=== PATIENT | male | born 1955 | race Caucasian/White ===

== ENCOUNTER 2022-11-23 18:48 | Inpatient (IN) | payer MEDICARE, BC ==
[2022-11-23 19:40] LABS: #Basophils 0.1 10x3/uL (0.0-0.2); #Eosinphils 0.1 10x3/uL (0.0-0.5); #Monocytes 0.5 10x3/uL (0.0-1.1); #Neutrophils 4.7 10x3/uL (1.5-8.4); %Basophils 0.7 % (0.0-2.0); %Eosinophils 1.2 % (0.0-6.0); %Lymphocytes 20.5 % (18.0-47.0); %Monocytes 7.6 % (0.0-10.0); %Neutrophils 69.9 % (40.0-75.0); Hematocrit 43.7 % (38.8-50.0); Hemoglobin 14.5 g/dL (13.5-17.5); Mean Corpuscular HGB CONC 33.2 g/dL (32.0-36.0); Mean Corpuscular Hemoglobin 28.7 pg (27.0-33.0); Mean Corpuscular Volume 86.5 fl (81.2-95.1); Platelet Count 165 10x3/uL (150-450); RBC Distribution Width 13.7 % (11.5-14.5); Red Blood Cell (RBC) Count 5.05 10x6/uL (4.32-5.72); White Blood Cell (WBC) Count 6.7 10x3/uL (3.5-10.5)
[2022-11-23 19:51] LABS: ALT (SGPT) 86 U/L (8-55); AST (SGOT) 53 U/L (5-34); Albumin 4.4 g/dL (3.4-4.8); Alkaline Phosphatase 67 U/L (40-110); Anion Gap 13 mmol/L (10-20); BUN (Urea Nitrogen) 41 mg/dL (8.4-25.7); Bilirubin, Total 0.4 mg/dL (0.2-1.2); Calc. Creatinine Clearance 0 mL/min (70-130); Calcium 9.4 mg/dL (7.8-10.44); Carbon Dioxide 23 mmol/L (23-31); Chloride 107 mmol/L (98-107); Estimated GFR 31; Globulin 3.1 g/dL (2.4-3.5); Glucose 96 mg/dL (80-115); Magnesium 1.9 mg/dL (1.6-2.6); Potassium 4.4 mmol/L (3.5-5.1); Protein, Total 7.5 g/dL (5.8-8.1); Sodium 139 mmol/L (136-145)
[2022-11-23 19:56] LABS: Troponin I 0.021 ng/mL (< 0.028)
[2022-11-23] MEDS ORDERED: Calcium Carbonate 500 MG ChewTAB PO PRN (22:45)
[2022-11-23] MEDS ORDERED: Senokot S 8.6-50 MG TAB PO PRN (22:45)
[2022-11-23] MEDS ORDERED: Ondansetron PF 4 MG/2 ML Vial IVP PRN (22:45)
[2022-11-23] MEDS ORDERED: Guaifenesin DM 100-10/5 ML UDCUP PO PRN (22:45)
[2022-11-23] MEDS ORDERED: Acetaminophen 325 MG TAB PO PRN (22:45)
[2022-11-23] MEDS ORDERED: traMADol HCl 50 MG TAB PO PRN (22:49)
[2022-11-23] MEDS ORDERED: Sodium Chloride 0.9% 1,000 ML IV SCH (23:00)
[2022-11-24] VITALS: BMI 25.7
[2022-11-24 01:58] LABS: Bilirubin Neg (Negative); Blood, Urine 25 (Negative); Clarity Clear (Clear); Glucose, Urine (Dipstick) Normal (Negative); Ketone, Urine 5 mg/dL (Negative); Leukocyte Negative (Negative); Nitrite Negative (Negative); Protein, Urine (Dipstick) 15 mg/dl (Neg-Trace); Urobilinogen Normal mg/dL (Less than 2)
[2022-11-24 02:04] LABS: Bacteria/HPF None Seen HPF (None Seen); RBC/HPF 0-3 HPF (0-3); Squamous Epithelial None Seen HPF (0-3); WBC/HPF None Seen HPF (0-3)
[2022-11-24 04:29] LABS: ALT (SGPT) 61 U/L (8-55); AST (SGOT) 35 U/L (5-34); Albumin 3.4 g/dL (3.4-4.8); Alkaline Phosphatase 57 U/L (40-110); Anion Gap 12 mmol/L (10-20); BUN (Urea Nitrogen) 35 mg/dL (8.4-25.7); Bilirubin, Total 0.2 mg/dL (0.2-1.2); Calc. Creatinine Clearance 54 mL/min (70-130); Calcium 8.5 mg/dL (7.8-10.44); Carbon Dioxide 22 mmol/L (23-31); Chloride 110 mmol/L (98-107); Estimated GFR 49; Globulin 3.2 g/dL (2.4-3.5); Glucose 141 mg/dL (80-115); Potassium 3.8 mmol/L (3.5-5.1); Protein, Total 6.6 g/dL (5.8-8.1); Sodium 140 mmol/L (136-145)
[2022-11-24] MEDS: Lactated Ringer's 1,000 ML IV SCH ×2 (08:47→20:31)
[2022-11-24] MEDS: Gabapentin 100 MG CAP PO SCH (08:48)
[2022-11-24] MEDS: Famotidine 20 MG TAB PO SCH (08:48)
[2022-11-24] MEDS: Rosuvastatin 20 MG TAB PO SCH (08:48)
[2022-11-24] MEDS: Tacrolimus 0.5 MG CAP PO SCH ×2 (08:48→20:23)
[2022-11-24] MEDS: Docusate 100 MG CAP PO SCH ×2 (08:48→20:31)
[2022-11-24] MEDS ORDERED: Terazosin HCl 1 MG CAP PO SCH (21:00)
[2022-11-25 03:45] LABS: ALT (SGPT) 48 U/L (8-55); AST (SGOT) 25 U/L (5-34); Albumin 3.3 g/dL (3.4-4.8); Alkaline Phosphatase 50 U/L (40-110); Anion Gap 10 mmol/L (10-20); BUN (Urea Nitrogen) 20 mg/dL (8.4-25.7); Bilirubin, Total 0.2 mg/dL (0.2-1.2); Calc. Creatinine Clearance 74 mL/min (70-130); Calcium 8.4 mg/dL (7.8-10.44); Carbon Dioxide 23 mmol/L (23-31); Chloride 107 mmol/L (98-107); Estimated GFR 71; Globulin 2.4 g/dL (2.4-3.5); Glucose 104 mg/dL (80-115); Magnesium 1.6 mg/dL (1.6-2.6); Potassium 3.8 mmol/L (3.5-5.1); Protein, Total 5.7 g/dL (5.8-8.1); Sodium 136 mmol/L (136-145)
[2022-11-25 03:48] LABS: #Basophils 0.1 10x3/uL (0.0-0.2); #Eosinphils 0.1 10x3/uL (0.0-0.5); #Monocytes 0.4 10x3/uL (0.0-1.1); #Neutrophils 2.5 10x3/uL (1.5-8.4); %Basophils 1.1 % (0.0-2.0); %Eosinophils 1.8 % (0.0-6.0); %Lymphocytes 33.6 % (18.0-47.0); %Monocytes 8.8 % (0.0-10.0); %Neutrophils 54.5 % (40.0-75.0); Hematocrit 37.5 % (38.8-50.0); Hemoglobin 12.6 g/dL (13.5-17.5); Mean Corpuscular HGB CONC 33.6 g/dL (32.0-36.0); Mean Corpuscular Hemoglobin 28.8 pg (27.0-33.0); Mean Corpuscular Volume 85.8 fl (81.2-95.1); Platelet Count 154 10x3/uL (150-450); RBC Distribution Width 13.4 % (11.5-14.5); Red Blood Cell (RBC) Count 4.37 10x6/uL (4.32-5.72); White Blood Cell (WBC) Count 4.5 10x3/uL (3.5-10.5)
[2022-11-25 03:52] LABS: Troponin I 0.012 ng/mL (< 0.028)
[2022-11-25] MEDS ORDERED: OXCARBAZEPINE 300 MG PO SCH (06:00)
[2022-11-25] MEDS ORDERED: EVEROLIMUS 0.5 MG PO SCH (09:00)
[2022-11-25] MEDS: Docusate 100 MG CAP PO SCH (09:29)
[2022-11-25] MEDS: Tacrolimus 0.5 MG CAP PO SCH (10:24)
[2022-11-25] MEDS: Famotidine 20 MG TAB PO SCH (10:54)
[2022-11-25] MEDS: Gabapentin 100 MG CAP PO SCH (11:01)
[2022-11-25] MEDS: Rosuvastatin 20 MG TAB PO SCH (11:01)
[2022-11-25 13:21] VITALS: BP 175/94; TEMP 98
== END 2022-11-25 14:54 | disposition home or self-care (01) | DRG 300 ==
LOC: CSHERS 18:48 → CSHTELE 23:41
PROVIDERS: ADMIT Student in an Organized Health Care Education/Training Program; ATTEND Family Medicine
DX: I82.412 Acute embolism and thrombosis of left femoral vein (principal); N17.9 Acute kidney failure, unspecified; Z94.4 Liver transplant status; I82.432 Acute embolism and thrombosis of left popliteal vein; E78.5 Hyperlipidemia, unspecified; G89.29 Other chronic pain; N18.9 Chronic kidney disease, unspecified; I13.10 Hypertensive heart and chronic kidney disease without heart failure, with stage 1 through stage 4 chronic kidney disease, or unspecified chronic kidney disease; G50.0 Trigeminal neuralgia; Z88.5 Allergy status to narcotic agent; Z79.899 Other long term (current) drug therapy; Z98.890 Other specified postprocedural states; Z87.891 Personal history of nicotine dependence; Z85.05 Personal history of malignant neoplasm of liver
CPT/HCPCS: 36415; 71045; 71275; 80053; 80197; 81001; 82550; 83735; 83880; 84484; 85025; 85379; 93005; 93306; J1650; J7050; J7120; J7507

== ENCOUNTER 2024-05-06 08:05 | Outpatient (CLI) | payer OTHER | END 2024-05-06 08:06 | disposition home or self-care (01) | LOC: CSHCT 08:05 | PROVIDERS: ATTEND Family Medicine | DX: I10 Essential (primary) hypertension (principal); R93.1 Abnormal findings on diagnostic imaging of heart and coronary circulation; I77.810 Thoracic aortic ectasia | CPT/HCPCS: 75571 ==